=== PATIENT | female | born 1990 | race African-American/Black ===

== ENCOUNTER 2017-06-02 03:07 | Emergency (ER) | payer OTHER ==
[~2017-06-02] VITALS: Ht 160 cm; Wt 56.7 kg
[2017-06-02] MEDS ORDERED: Tylenol #3 tab (300mg/30mg) ORAL ONE (04:15)
[2017-06-02] MEDS ORDERED: Albuterol ud Inhalation HHN ONE (04:15)
[2017-06-02] MEDS ORDERED: ACETAMINOPHEN-1 EAC1 ORAL (04:19)
[2017-06-02] MEDS ORDERED: VENTOLIN HFA18 GM INH (04:19)
[2017-06-02] MEDS ORDERED: FLONASE ALLERG9.9 ML NS (04:19)
[2017-06-02 04:22] VITALS: BP 121/89
[2017-06-02 05:01] VITALS: BP 121/89
--- NOTE | 2017-06-02 05:34 | Emergency Room Report ---
History of Present Illness General Chief Complaint: Flu Like Symptoms Source: Patient Present Illness HPI 27YOF with symptoms including gradual onset subjective fever/chills, myalgias, nasal congestion, body aches, sore throat. No associated headache, vision changes Did not receive flu vaccine No sick contacts at home/work Did not take OTC meds No asthma history Allergies: Coded Allergies: No Known Allergies (Unverified , 07/23/12) Patient History Past Medical History: none Past Surgical History: none Pertinent Family History: none Social History: Denies: smoking, alcohol use, drug use Last Menstrual Period: last month Now: No : 2 Para: 2 Reviewed Nursing Documentation: PMH: Agreed, PSxH: Agreed Nursing Documentation-PMH Past Medical History: No Stated History Review of Systems All Other Systems: negative except mentioned in HPI Physical Exam Vital Signs Date Time Temp Pulse Resp B/P (MAP) Pulse Ox O2 Delivery O2 Flow Rate FiO2 06/02/17 03:10 98.3 102 18 128/84 98 Room Air 98.2 06/02/17 04:28 21 Sp02 EP Interpretation: reviewed, normal General Appearance: normal inspection, well appearing, no apparent distress, alert, GCS 15, non-toxic Head: normocephalic, atraumatic Eyes: bilateral eye PERRL, bilateral eye EOMI ENT: normal ENT inspection, hearing grossly normal, normal pharynx, no angioedema, normal voice, TMs + canals normal, uvula midline, moist mucus membranes, nasal congestion Neck: normal inspection, full range of motion, supple, thyroid normal, no meningismus, no bony tend Respiratory: normal inspection, lungs clear, normal breath sounds, no rhonchi, no respiratory distress, no retraction, no accessory muscle use, no wheezing, speaking full sentences Cardiovascular #1: regular rate, rhythm, no edema, no JVD, normal capillary refill Gastrointestinal: normal inspection, normal bowel sounds, non tender, soft, no mass, no peritonitis, non-distended, no guarding, no hernia, no pulsatile mass Genitourinary: no CVA tenderness Musculoskeletal: normal inspection, back normal, normal range of motion, no calf tenderness, pelvis stable, Lore's Sign negative Neurologic: normal inspection, alert, oriented x3, responsive, lift slab operator III-XII nml as tested, motor strength/tone normal, cerebellar normal, normal gait, speech normal Psychiatric: normal inspection, judgement/insight normal, mood/affect normal, no suicidal/homicidal ideation, no delusions Skin: normal inspection, normal color, no rash Lymphatic: normal inspection, no adenopathy Medical Decision Making Diagnostic Impression: Primary Impression: URI (upper respiratory infection) Qualified Codes: J06.9 - Acute upper respiratory infection, unspecified ER Course 27YOF with likely URI vs flu less likely given gradual onset, nasal congestion, sore throat VSS, afebrile Out of the Tamiflu window as it is Component of bronchitis Given albuterol neb in ED Rx supportive meds ER course: Patient has remained stable during ED stay. Disposition: Patient is to be discharged to home. Prescriptions given are ventolin, T#3 Patient is instructed to follow up with their primary care doctor within 5 days. Strict return precautions discussed with patient such as fever, chills, worsening/severe pain, nausea, vomiting, which may indicate severe illness. Patient verbalizes understanding and agrees with plan. Please note that this Emergency Department Report was dictated using [employer] questionnaire designer technology software, occasionally this can lead to erroneous entry secondary to interpretation by the dictation equipment Last Vital Signs Date Time Temp Pulse Resp B/P (MAP) Pulse Ox O2 Delivery O2 Flow Rate FiO2 06/02/17 05:01 208.9 77 18 121/89 98 Room Air 21 208.9 Status: improved Disposition: HOME, SELF-CARE Condition: Improved Scripts Albuterol Sulfate (VENTOLIN HFA) 18 Gm Hfa.aer.ad 1 PUFF INH EVERY 6 HOURS for For Cough, #18 GM 0 Refills Prov: CUCA DIGGS M.D. 06/02/17 Acetaminophen With Codeine (T#3) (TYLENOL #3 TAB*) Y Tab 1 TAB ORAL Q8HR Y for For Cough for 7 Days, #20 TAB Prov: CUCA DIGGS M.D. 06/02/17 Fluticasone Propionate (Flonase Allergy Relief) 9.9 Ml [place].susp 9.9 ML NS BID for 7 Days, #1 UNIT Prov: CUCA DIGGS M.D. 06/02/17 Referrals: NOT CHOSEN IPA/MD,REFERRING Patient Instructions: Upper Respiratory Infection, Adult, [id number] CUCA DIGGS M.D. Jun 02, 2017 05:34
== END 2017-06-02 05:00 | disposition home or self-care (01) ==
LOC: EMR 04:53
DX: J06.9 Acute upper respiratory infection, unspecified (principal)
CPT/HCPCS: 94640; 94664; 99284

== ENCOUNTER 2020-02-17 16:19 | Emergency (ER) | payer OTHER ==
[~2020-02-17] VITALS: Ht 160 cm; Wt 56.7 kg
[~2020-02-17 16:19] MED LIST: ACETAMINOPHEN-1 EAC1 ORAL; FLONASE ALLERG9.9 ML NS; VENTOLIN HFA18 GM INH
[2020-02-17 16:35] VITALS: BP 135/86
--- NOTE | 2020-02-17 16:50 | NUR ---
ED Nurse Note: Patient from home and walked in due to possible drug overdose. Patient states methadone and morphine tablet 30mg around 11am this morning due to her toothache. Pt feels that her heart was racing and having hand tremors. Patient walked with steady gait, AAO x4, VSS at this time.
--- NOTE | 2020-02-17 16:55 | Emergency Room Report ---
History of Present Illness General Chief Complaint: Substance Abuse Source: Patient Present Illness HPI 29 YO female presents to the ED c/o episode of palpitations and paresthesias in the bilateral hands lasting approximately 1 hour. Patient explains that at 11 AM this morning she had a toothache so she took medications that were not prescribed to her. Patient reports taking unknown milligram of methadone as well as 30 mg of morphine. Patient reports that she slept for 3 hours and upon awakening at approximately 30 3:30 PM patient had onset of her symptoms. She denies fevers or chills. She reports that she received medication from a trustworthy source. She denies cardiac history no familial cardiac history. Patient reports that she is otherwise healthy. She does report history of anxiety and states that she is prescribed Xanax for which she never takes. She denies shortness of breath diaphoresis, syncope or dizziness. She denies headache, nausea or vomiting. She denies suspicion of . No other aggravating or relieving factors at this time. She denies having pain in the chest. She describes feeling as though her heart was racing and she felt very shaky/tremulous. She denies recent illness. She denies other psychiatric dx's other than anxiety. She denies SI/HI or PSA's. Denies illicit drug use. Allergies: Coded Allergies: No Known Allergies (Unverified , 07/23/12) COVID-19 Screening Contact w/high risk pt: No Experienced COVID-19 symptoms?: No COVID-19 Testing performed GAS MAKER: No Patient History Past Medical History: see triage record Past Surgical History: none Pertinent Family History: none Last Menstrual Period: currently on her period Now: No Reviewed Nursing Documentation: PMH: Agreed; PSxH: Agreed Nursing Documentation-PMH Past Medical History: No History, Except For Review of Systems All Other Systems: negative except mentioned in HPI Physical Exam Vital Signs Date Time Temp Pulse Resp B/P (MAP) Pulse Ox O2 Delivery O2 Flow Rate FiO2 02/17/20 16:23 98.2 92 16 135/86 (102) 96 Room Air Sp02 EP Interpretation: reviewed, normal General Appearance: well appearing, no apparent distress, alert, GCS 15, non- toxic Head: normocephalic, atraumatic Eyes: bilateral eye normal inspection, bilateral eye PERRL ENT: hearing grossly normal, normal voice Neck: full range of motion Respiratory: chest non-tender, lungs clear, normal breath sounds, no respiratory distress, no accessory muscle use, no wheezing, speaking full sentences Cardiovascular #1: normal peripheral pulses, regular rate, rhythm, no edema, no murmur, normal capillary refill Gastrointestinal: normal bowel sounds, non tender, soft, non-distended, no g uarding Rectal: deferred Genitourinary: normal inspection, no CVA tenderness, adnexa normal, ext genitalia/vag normal Musculoskeletal: back normal, normal range of motion, gait/station normal, non- tender Neurologic: alert, motor strength/tone normal, oriented x3, sensory intact, responsive, speech normal Psychiatric: judgement/insight normal, memory normal, mood/affect normal, no suicidal/homicidal ideation Skin: no rash, normal color Lymphatic: no adenopathy Medical Decision Making PA Attestation Dr. Ruvalcaba is my supervising Physician whom patient management has been disc ussed with. Diagnostic Impression: Primary Impression: Adverse reaction to drug Qualified Codes: T50.905A - Adverse effect of unspecified drugs, medicaments and biological substances, initial encounter ER Course 29 YO female presents to the ED c/o episode of palpitations and paresthesias in the bilateral hands lasting approximately 1 hour. Patient explains that at 11 AM this morning she had a toothache so she took medications that were not prescribed to her. Patient reports taking unknown milligram of methadone as well as 30 mg of morphine. Patient reports that she slept for 3 hours and upon awakening at approximately 30 3:30 PM patient had onset of her symptoms. She denies fevers or chills. She reports that she received medication from a trustworthy source. She denies cardiac history no familial cardiac history. Patient reports that she is otherwise healthy. She does report history of anxiety and states that she is prescribed Xanax for which she never takes. She denies shortness of breath diaphoresis, syncope or dizziness. She denies headache, nausea or vomiting. She denies suspicion of . No other aggravating or relieving factors at this time. She denies having pain in the chest. She describes feeling as though her heart was racing and she felt very shaky/tremulous. She denies recent illness. She denies other psychiatric dx's other than anxiety. She denies SI/HI or PSA's. Denies illicit drug use. Ddx considered but are not limited to opiate OD, anxiety reaction, cardiac arrhythmia, PE, Vital signs: are WNL, pt. is afebrile H&PE are most consistent with anxiety reaction after ingestion of opiates. --Patient is nontoxic in appearance alert and oriented x4, in no acute distress. Patient does not appear drowsy or sleepy. Patient is maintaining her own airway. Not in respiratory distress. ORDERS: -CBC: WNL -BMP: potassium of 3.3 otherwise unremarkable -Urine hcg: Negative UDS: positive for THC and Opiates. -UA: Most indicative of contamination: presence of equal amounts of bacteria and squamous cells, no elevation in inflammatory markers, nitrite negative. Blood c/w being on cycle. ED INTERVENTIONS: Poison control was contacted by radiation therapy technologist. Poison control recommended 4-hour observational period. - Pt. given 60Meq Kcl as pt. was mildly decreased at 3.3. DISCHARGE: At this time pt. is stable for d/c to home. Will provide printed patient care instructions, and any necessary prescriptions. Care plan and follow up instructions have been discussed with the patient prior to discharge. Labs Test 02/17/20 17:01 White Blood Count 8.0 K/UL (4.8-10.8) Red Blood Count 5.68 M/UL (4.20-5.40) Hemoglobin 12.3 G/DL (12.0-16.0) Hematocrit 38.1 % (37.0-47.0) Mean Corpuscular Volume 67 FL (80-99) Mean Corpuscular Hemoglobin 21.7 PG (27.0-31.0) Mean Corpuscular Hemoglobin Concent 32.3 G/DL (32.0-36.0) Red Cell Distribution Width 14.0 % (11.6-14.8) Platelet Count 249 K/UL (150-450) Mean Platelet Volume 6.9 FL (6.5-10.1) Neutrophils (%) (Auto) 65.5 % (45.0-75.0) Lymphocytes (%) (Auto) 24.6 % (20.0-45.0) Monocytes (%) (Auto) 7.4 % (1.0-10.0) Eosinophils (%) (Auto) 1.3 % (0.0-3.0) Basophils (%) (Auto) 1.1 % (0.0-2.0) Urine Color Pale yellow Urine Appearance Clear Urine pH 6 (4.5-8.0) Urine Specific [place] 1.015 (1.005-1.035) Urine Protein 2+ (NEGATIVE) Urine Glucose (UA) Negative (NEGATIVE) Urine Ketones Negative (NEGATIVE) Urine Blood 3+ (NEGATIVE) Urine Nitrite Negative (NEGATIVE) Urine Bilirubin Negative (NEGATIVE) Urine Urobilinogen Normal MG/DL (0.0-1.0) Urine Leukocyte Esterase 1+ (NEGATIVE) Urine RBC 0-2 /HPF (0 - 2) Urine WBC 0-2 /HPF (0 - 2) Urine Squamous Epithelial Cells Moderate /LPF (NONE/OCC) Urine Bacteria Few /HPF (NONE) Urine HCG, Qualitative Negative (NEGATIVE) Sodium Level 141 MMOL/L (136-145) Potassium Level 3.3 MMOL/L (3.5-5.1) Chloride Level 104 MMOL/L (98-107) Carbon Dioxide Level 28 MMOL/L (21-32) Anion Gap 9 mmol/L (5-15) Blood Urea Nitrogen 12 mg/dL (7-18) Creatinine 0.9 MG/DL (0.55-1.30) Estimat Glomerular Filtration Rate > 60 mL/min (>60) Glucose Level 142 MG/DL (74-106) Calcium Level 8.5 MG/DL (8.5-10.1) Total Bilirubin 0.3 MG/DL (0.2-1.0) Aspartate Amino Transf (AST/SGOT) 14 U/L (15-37) Alanine Aminotransferase (ALT/SGPT) 19 U/L (12-78) Alkaline Phosphatase 36 U/L (46-116) Total Protein 7.3 G/DL (6.4-8.2) Albumin 4.1 G/DL (3.4-5.0) Globulin 3.2 g/dL Albumin/Globulin Ratio 1.3 (1.0-2.7) Urine Opiates Screen Positive (NEGATIVE) Urine Barbiturates Screen Negative (NEGATIVE) Phencyclidine (PCP) Screen Negative (NEGATIVE) Urine Amphetamines Screen Negative (NEGATIVE) Urine Benzodiazepines Screen Negative (NEGATIVE) Urine Cocaine Screen Negative (NEGATIVE) Urine Marijuana (THC) Screen Positive (NEGATIVE) EKG Diagnostic Results Troponin ordered: No EKG Time: 16:39 Rate: normal Rhythm: NSR ST Segments: no acute changes ASA given to the pt in ED: No PA Scribe Text This Interpretation was scribed by CHARISSE Baker. Last Vital Signs Date Time Temp Pulse Resp B/P (MAP) Pulse Ox O2 Delivery O2 Flow Rate FiO2 02/17/20 16:23 98.2 92 16 135/86 (102) 96 Room Air Status: improved Disposition: HOME, SELF-CARE Condition: Stable Referrals: NON PHYSICIAN (PCP) [facility] L[facility]. [facility] Patient Instructions: Medical Screening Exam, Palpitations, [id number] Additional Instructions: Take medications as directed. Follow up with a Primary Care Provider in 3-5 days, even if your symptoms have resolved. CHIEF DEPUTY CORONER and PSYCHIATRIC FOLLOW UP IF SYMPTOMS PERSIST --Please review list of primary care clinics, if you do not already have a primary care provider Return sooner to ED if new symptoms occur, or current symptoms become worse. - Please note that this Emergency Department Report was dictated using [email or web address] technology software, occasionally this can lead to erroneous entry secondary to interpretation by the dictation equipment. Lesly Baker Feb 17, 2020 16:55
--- NOTE | 2020-02-17 16:55 | NUR ---
ED Nurse Note: IV line was established on right AC 20ga, blood and urine sent to lab
--- NOTE | 2020-02-17 17:04 | NUR ---
Poison control was called and was instructed to watch pts respiratory rate and if respiratory rate drops pt should be given Narcan. If Narcan administerred pt needs to be monitored for the next 48hrs.
[2020-02-17 17:19] LABS: BASOPHILS % (AUTO) 1.1 % (0.0-2.0); EOSINOPHILS % (AUTO) 1.3 % (0.0-3.0); HEMATOCRIT 38.1 % (37.0-47.0); HEMOGLOBIN 12.3 G/DL (12.0-16.0); LYMPHOCYTES % (AUTO) 24.6 % (20.0-45.0); MEAN CORPUSCULAR VOLUME 67 FL (80-99); MONOCYTES % (AUTO) 7.4 % (1.0-10.0); NEUTROPHILS % (AUTO) 65.5 % (45.0-75.0); PLATELET COUNT 249 K/UL (150-450); RED BLOOD COUNT 5.68 M/UL (4.20-5.40)
[2020-02-17 17:21] LABS: APPEARANCE,URINE CLEAR; BILIRUBIN, URINE NEGATIVE (NEGATIVE); COLOR,URINE PALE YELLOW; GLUCOSE, URINE (UA) NEGATIVE (NEGATIVE); KETONES,URINE NEGATIVE (NEGATIVE); LEUKOCYTE ESTERASE ,URINE 1+ (NEGATIVE); NITRITE,URINE NEGATIVE (NEGATIVE); PH,URINE 6 (4.5-8.0); PROTEIN,URINE 2+ (NEGATIVE); UROBILINOGEN,URINE NORMAL MG/DL (0.0-1.0)
[2020-02-17 17:31] LABS: ANION GAP 9 mmol/L (5-15); BLOOD UREA NITROGEN 12 mg/dL (7-18); CALCIUM 8.5 MG/DL (8.5-10.1); CARBON DIOXIDE 28 MMOL/L (21-32); CHLORIDE 104 MMOL/L (98-107); CREATININE 0.9 MG/DL (0.55-1.30); POTASSIUM 3.3 MMOL/L (3.5-5.1); SODIUM 141 MMOL/L (136-145)
[2020-02-17 17:42] LABS: ALANINE AMINOTRANSFERASE 19 U/L (12-78); ALBUMIN 4.1 G/DL (3.4-5.0); ALBUMIN/GLOBULIN RATIO 1.3 (1.0-2.7); ALKALINE PHOSPHATASE 36 U/L (46-116); ASPARTATE AMINO TRANSFERASE 14 U/L (15-37); BILIRUBIN,TOTAL 0.3 MG/DL (0.2-1.0)
--- NOTE | 2020-02-17 18:48 | NUR ---
ED Nurse Note: Patient resting in the bed, eating pizza, NAD noted mom still at bed side.
--- NOTE | 2020-02-17 19:14 | NUR ---
HAND-OFF: Report given to Stevie Joyner RN.
[2020-02-17 19:45] VITALS: BP 115/82
--- NOTE | 2020-02-17 20:35 | NUR ---
SL removed, discharge instructions given and explined. Left with family member with steady gait ,all belongings with patient.No pain on discharge.
[2020-02-17 20:36] VITALS: BP 124/85
== END 2020-02-17 20:35 | disposition home or self-care (01) ==
LOC: EMR 16:30
DX: R00.2 Palpitations (principal); R20.2 Paresthesia of skin; T40.2X5A Adverse effect of other opioids, initial encounter; T40.3X5A Adverse effect of methadone, initial encounter; Y92.9 Unspecified place or not applicable
CPT/HCPCS: 36415; 80053; 80307; 81003; 81025; 85025; 93005; Z7502; 99283; J8499